=== PATIENT | male | born 1940 | race Caucasian/White ===

== ENCOUNTER 2018-12-11 15:05 | Outpatient (REF) | payer MEDICARE, BC, SELFPAY ==
[2018-12-11 19:17] LABS: ALT 18 U/L (12-78); AST 22 U/L (15-37); Albumin 3.9 g/dL (3.4-5.0); Alkaline Phosphatase 97 U/L (46-116); Anion Gap 8.9 mmol/L (3-11); BUN 31 mg/dL (7-18); Bilirubin, Total 0.6 mg/dL (0.2-1.0); CO2 29.1 mmol/L (21.0-32.0); CREATININE 0.82 mg/dL (0.70-1.30); Calcium 8.9 mg/dL (8.5-10.1); Chloride 106 mmol/L (98-107); Glucose 88 mg/dL (70-100); Potassium 4.1 mmol/L (3.5-5.1); Sodium 144 mmol/L (136-145); Total Protein 6.9 g/dL (6.4-8.2)
== END 2018-12-11 15:25 ==
LOC: NCHCN 15:05
PROVIDERS: PCP Nurse Practitioner Family; Visit Provider Nurse Practitioner Family
DX: E87.6 Hypokalemia (principal)
CPT/HCPCS: 80053

== ENCOUNTER 2020-08-08 03:32 | Outpatient (CLI) | payer MEDICARE, BC, SELFPAY ==
[2020-08-08 16:00] LABS: Anion Gap 7.4 mmol/L (3-11); BUN 28 mg/dL (7-18); CO2 30.6 mmol/L (21.0-32.0); CREATININE 0.95 mg/dL (0.70-1.30); Calcium 8.8 mg/dL (8.5-10.1); Chloride 108 mmol/L (98-107); Glucose 106 mg/dL (74-106); Potassium 3.8 mmol/L (3.5-5.1); Sodium 146 mmol/L (136-145)
== END 2020-08-08 03:52 ==
PROVIDERS: PCP Nurse Practitioner Family; Visit Provider Nurse Practitioner Family
DX: E87.6 Hypokalemia (principal)
CPT/HCPCS: 36415; 80048